=== PATIENT | male | born 1975 | race Caucasian/White ===

== ENCOUNTER 2017-08-27 10:24 | Emergency (ER) | payer MEDICAID ==
[~2017-08-27] VITALS: Ht 185.4 cm; Wt 70.0 kg
[~2017-08-27 10:24] MED LIST: KEP500T PO; LISI10TA4 PO
[2017-08-27] MEDS ORDERED: normal saline 1000ML IV soln IVB ONE (12:20)
[2017-08-27] MEDS ORDERED: thiamine 100mg tablet PO ONE (12:20)
[2017-08-27 12:40] LABS: BASOPHILS % (AUTO) 0.3 % (0-1); EOSINOPHILS # (AUTO) 0.1 X10'3 (0-0.9); EOSINOPHILS % (AUTO) 0.9 % (0-6); HEMATOCRIT 52.1 % (42.0-52.0); LYMPHOCYTES # (AUTO) 2.1 X10'3 (1.1-4.8); LYMPHOCYTES % (AUTO) 32.1 % (21-51); MEAN CORPUSCULAR HEMOGLOBIN 32.2 PG (27.0-31.0); MEAN CORPUSCULAR HGB CONC 34.8 % (33.0-36.5); MEAN CORPUSCULAR VOLUME 92.6 FL (78-98); MEAN PLATELET VOLUME 6.8 FL (7.4-10.4); MONOCYTES # (AUTO) 0.5 X10'3 (0-0.9); MONOCYTES % (AUTO) 6.9 % (2-12); NEUTROPHILS # (AUTO) 3.9 X10'3 (1.8-7.7); NEUTROPHILS % (AUTO) 59.8 % (42-75); PLATELET COUNT 230 X10'3 (140-440); RED BLOOD COUNT 5.63 X10'6 (4.70-6.10); RED CELL DISTRIBUTION WIDTH 13.6 % (11.5-14.5); WHITE BLOOD COUNT 6.5 X10'3 (4.5-11.0)
[2017-08-27 12:42] LABS: HEMOGLOBIN 18.1 g/dl (14.0-17.9)
[2017-08-27 12:50] LABS: INR 0.9 INR; PARTIAL THROMBOPLASTIN TIME 23 SECONDS (22-32); PROTHROMBIN TIME 9.4 SECONDS (9.0-12.0)
[2017-08-27 13:02] LABS: CLARITY,URINE CLEAR (Clear); COLOR,URINE YELLOW (Yellow); GLUCOSE, URINE NEGATIVE (Neg); KETONES,URINE NEGATIVE (Neg); LEUKOCYTE ESTERASE ,URINE NEGATIVE (Neg); NITRITES, URINE NEGATIVE (Neg); OCCULT BLOOD,URINE NEGATIVE (Neg); PROTEIN,URINE NEGATIVE (Neg); UROBILINOGEN,URINE 0.2 E.U/dL (0.2-1.0)
[2017-08-27 13:03] LABS: ALANINE AMINOTRANSFERASE 97 U/L (12-78); ALBUMIN 4.4 G/DL (3.4-5.0); ALBUMIN/GLOBULIN RATIO 1.2 (1.1-1.5); ALKALINE PHOSPHATASE 77 IU/L (46-116); ANION GAP 17 (8-16); ASPARTATE AMINO TRANSFERASE 93 U/L (10-37); BILIRUBIN,TOTAL 0.4 MG/DL (0.1-1.0); BLOOD UREA NITROGEN 12 MG/DL (7-18); BUN/CREATININE RATIO 15.2 (5.4-32.0); CALCIUM 9.5 MG/DL (8.5-10.1); CHLORIDE 107 MMOL/L (99-107); CREATININE 0.79 MG/DL (0.60-1.10); GLUCOSE 112 MG/DL (70-104); SODIUM 147 MMOL/L (135-145); TOTAL CARBON DIOXIDE 23.5 MMOL/L (24-32); TOTAL PROTEIN 8.2 G/DL (6.4-8.2); eGFR > 90 ML/MIN
[2017-08-27 13:08] LABS: UA COLLECTION TYPE CLN CATCH MIDSTREAM
[2017-08-27] MEDS ORDERED: LORazepam 2 mg/ml vial IV ONE (14:45)
[2017-08-27] MEDS ORDERED: LEVE250T4 PO (18:55)
[2017-08-27] MEDS ORDERED: LISI-600 PO (18:55)
[2017-08-27] MEDS ORDERED: CLON-527 PO (19:53)
[2017-08-27] MEDS ORDERED: GABA-530 PO (19:53)
[2017-08-27] MEDS ORDERED: ONDA8TAB9 PO (19:54)
[2017-08-27 19:57] VITALS: BP 113/74
== END 2017-08-27 19:59 | disposition home or self-care (01) ==
LOC: ER 10:24
DX: F10.10 Alcohol abuse, uncomplicated (principal); E86.0 Dehydration; I10 Essential (primary) hypertension; Z56.0 Unemployment, unspecified; Z88.5 Allergy status to narcotic agent
CPT/HCPCS: 36415; 71045; 80053; 81003; 85025; 85610; 85730; 93005; 96361; 96374; 99285; J2060; J7030

== ENCOUNTER 2018-11-08 19:36 | Emergency (ER) | payer MEDICAID ==
[~2018-11-08] VITALS: Ht 185.4 cm; Wt 205.0 kg
[~2018-11-08 19:36] MED LIST changes: +CLON-527 PO; +GABA-530 PO; +LEVE250T4 PO; +ONDA8TAB9 PO
[2018-11-08] MEDS ORDERED: ketorolac tromethamine 15mg/ml inj. IV ONE (20:10)
[2018-11-08] MEDS ORDERED: ondansetron/PF 4mg/2ml inj IV ONE ×2 (20:10→21:30)
[2018-11-08 20:40] LABS: BASOPHILS % (AUTO) 0.7 % (0-1); EOSINOPHILS # (AUTO) 0.1 X10'3 (0-0.9); EOSINOPHILS % (AUTO) 1.3 % (0-6); HEMOGLOBIN 16.7 g/dl (14.0-17.9); LYMPHOCYTES # (AUTO) 1.5 X10'3 (1.1-4.8); LYMPHOCYTES % (AUTO) 26.6 % (21-51); MEAN CORPUSCULAR HEMOGLOBIN 31.4 PG (27.0-31.0); MEAN CORPUSCULAR HGB CONC 34.7 g/dL (33.0-36.5); MEAN CORPUSCULAR VOLUME 90.4 FL (78-98); MEAN PLATELET VOLUME 6.6 FL (7.4-10.4); MONOCYTES # (AUTO) 0.4 X10'3 (0-0.9); MONOCYTES % (AUTO) 6.5 % (2-12); NEUTROPHILS # (AUTO) 3.8 X10'3 (1.8-7.7); NEUTROPHILS % (AUTO) 64.9 % (42-75); PLATELET COUNT 270 X10'3 (140-440); RED BLOOD COUNT 5.31 X10'6 (4.70-6.10); RED CELL DISTRIBUTION WIDTH 14.9 % (11.5-14.5); WHITE BLOOD COUNT 5.8 X10'3 (4.5-11.0)
[2018-11-08 20:41] LABS: CLARITY,URINE CLEAR (Clear); COLOR,URINE YELLOW (Yellow); GLUCOSE, URINE NEGATIVE (Neg); KETONES,URINE NEGATIVE (Neg); LEUKOCYTE ESTERASE ,URINE NEGATIVE (Neg); NITRITES, URINE NEGATIVE (Neg); OCCULT BLOOD,URINE NEGATIVE (Neg); PROTEIN,URINE NEGATIVE (Neg); UROBILINOGEN,URINE 0.2 E.U/dL (0.2-1.0)
[2018-11-08 20:43] LABS: UA COLLECTION TYPE URINAL
[2018-11-08 20:55] LABS: URINE AMPHETAMINE SCREEN NEGATIVE (Neg); URINE BARBITUATE SCREEN NEGATIVE (Neg); URINE BENZODIAZEPINES SCREEN NEGATIVE (Neg); URINE CANNABINOID SCREEN POSITIVE (Neg); URINE COCAINE SCREEN NEGATIVE (Neg); URINE METHADONE SCREEN NEGATIVE (Neg); URINE OPIATE SCREEN NEGATIVE (Neg); URINE PHENCYCLIDINE SCREEN NEGATIVE (Neg)
[2018-11-08 21:00] LABS: ALANINE AMINOTRANSFERASE 59 U/L (12-78); ALBUMIN 4.1 G/DL (3.4-5.0); ALBUMIN/GLOBULIN RATIO 1.1 (1.1-1.5); ALKALINE PHOSPHATASE 85 IU/L (46-116); ANION GAP 13 (8-16); ASPARTATE AMINO TRANSFERASE 30 U/L (10-37); BILIRUBIN,TOTAL 0.3 MG/DL (0.1-1.0); BLOOD UREA NITROGEN 13 MG/DL (7-18); BUN/CREATININE RATIO 14.3 (5.4-32.0); CALCIUM 8.4 MG/DL (8.5-10.1); CHLORIDE 107 MMOL/L (99-107); CREATININE 0.91 MG/DL (0.60-1.10); ETHANOL 0.206 GM/DL (0.0-0.010); GLUCOSE 107 MG/DL (70-104); LIPASE 206 U/L (73-393); POTASSIUM 4.1 MMOL/L (3.5-5.1); SODIUM 142 MMOL/L (135-145); TOTAL CARBON DIOXIDE 21.6 MMOL/L (24-32); TOTAL PROTEIN 7.9 G/DL (6.4-8.2); eGFR > 90 ML/MIN
[2018-11-08] MEDS ORDERED: phenobarbital inj 260 MG in normal saline 100ml IV soln 99 ML IV STA (21:29)
[2018-11-08] MEDS ORDERED: normal saline 1000ML IV soln IVB ONE (21:30)
[2018-11-08] MEDS ORDERED: famotidine/PF 10 mg/ml inj IV ONE (21:35)
[2018-11-08] MEDS ORDERED: pantoprazole 40 MG vial IV ONE (21:35)
[2018-11-08 21:47] LABS: MAGNESIUM 2.2 MG/DL (1.5-2.4)
[2018-11-08] MEDS ORDERED: ONDA4TAB6 PO (22:28)
[2018-11-08 23:47] VITALS: BP 147/97
== END 2018-11-08 23:53 ==
LOC: ER 19:36
DX: K29.20 Alcoholic gastritis without bleeding (principal); F10.239 Alcohol dependence with withdrawal, unspecified; F12.90 Cannabis use, unspecified, uncomplicated; R10.10 Upper abdominal pain, unspecified; I10 Essential (primary) hypertension; Z56.0 Unemployment, unspecified; Z90.49 Acquired absence of other specified parts of digestive tract; Z88.5 Allergy status to narcotic agent; Z79.899 Other long term (current) drug therapy; Z88.8 Allergy status to other drugs, medicaments and biological substances; Y90.9 Presence of alcohol in blood, level not specified
CPT/HCPCS: 36415; 71045; 80053; 80305; 80320; 81003; 82948; 83690; 83735; 85025; 93005; 96365; 96375; 99284; C9113; J2405; J2560; J3490; J7030

== ENCOUNTER 2019-09-24 06:24 | Emergency (ER) | payer MEDICAID, OTHER ==
[~2019-09-24] VITALS: Ht 185.4 cm; Wt 97.7 kg
[~2019-09-24 06:24] MED LIST changes: +ONDA4TAB6 PO
[2019-09-24] MEDS ORDERED: ketorolac trometh. 30mg/ml inj. IV ONE (07:30)
[2019-09-24] MEDS ORDERED: normal saline 1000ml 1,000 ML IV ONE (07:30)
[2019-09-24] MEDS ORDERED: diphenhydrAMINE 50 mg/ml inj IV ONE (07:30)
[2019-09-24 07:36] LABS: CLARITY,URINE CLEAR (Clear); COLOR,URINE YELLOW (Yellow); GLUCOSE, URINE NEGATIVE (Neg); KETONES,URINE NEGATIVE (Neg); LEUKOCYTE ESTERASE ,URINE NEGATIVE (Neg); NITRITES, URINE NEGATIVE (Neg); OCCULT BLOOD,URINE NEGATIVE (Neg); PROTEIN,URINE NEGATIVE (Neg); UROBILINOGEN,URINE 0.2 E.U/dL (0.2-1.0)
[2019-09-24 07:37] LABS: UA COLLECTION TYPE URINAL
[2019-09-24 07:39] LABS: BASOPHILS # (AUTO) 0.1 X10'3 (0-0.2); BASOPHILS % (AUTO) 0.7 % (0-1); EOSINOPHILS # (AUTO) 0.1 X10'3 (0-0.9); EOSINOPHILS % (AUTO) 0.8 % (0-6); HEMATOCRIT 46.4 % (42.0-52.0); HEMOGLOBIN 15.7 g/dl (14.0-17.9); LYMPHOCYTES # (AUTO) 0.7 X10'3 (1.1-4.8); LYMPHOCYTES % (AUTO) 8.4 % (21-51); MEAN CORPUSCULAR HEMOGLOBIN 30.8 PG (27.0-31.0); MEAN CORPUSCULAR HGB CONC 33.9 g/dL (33.0-36.5); MONOCYTES % (AUTO) 11.7 % (2-12); NEUTROPHILS # (AUTO) 6.7 X10'3 (1.8-7.7); NEUTROPHILS % (AUTO) 78.4 % (42-75); PLATELET COUNT 227 X10'3 (140-440); RED BLOOD COUNT 5.09 X10'6 (4.70-6.10); RED CELL DISTRIBUTION WIDTH 12.7 % (11.5-14.5); WHITE BLOOD COUNT 8.5 X10'3 (4.5-11.0)
[2019-09-24 07:48] LABS: PARTIAL THROMBOPLASTIN TIME 25 SECONDS (22-32)
[2019-09-24 07:50] LABS: ALANINE AMINOTRANSFERASE 36 U/L (12-78); ALBUMIN 3.9 G/DL (3.4-5.0); ALBUMIN/GLOBULIN RATIO 1.2 (1.1-1.5); ALKALINE PHOSPHATASE 87 IU/L (46-116); ANION GAP 9 (8-16); ASPARTATE AMINO TRANSFERASE 21 U/L (10-37); BILIRUBIN,TOTAL 0.3 MG/DL (0.1-1.0); BLOOD UREA NITROGEN 11 MG/DL (7-18); BUN/CREATININE RATIO 11.5 (5.4-32.0); CALCIUM 8.9 MG/DL (8.5-10.1); CHLORIDE 105 MMOL/L (99-107); CREATININE 0.96 MG/DL (0.60-1.10); GLUCOSE 104 MG/DL (70-104); SODIUM 139 MMOL/L (135-145); TOTAL CARBON DIOXIDE 25.5 MMOL/L (24-32); TOTAL PROTEIN 7.2 G/DL (6.4-8.2); eGFR 86 ML/MIN
[2019-09-24] MEDS ORDERED: IBUP-1984 PO (08:32)
[2019-09-24] MEDS ORDERED: LORA-660 PO (08:32)
[2019-09-24 08:38] VITALS: BP 145/95
== END 2019-09-24 08:38 ==
LOC: ER 06:25 → EEVIPCON 06:25 → ER 08:38
DX: R05 Cough (principal); Z20.828 Contact with and (suspected) exposure to other viral communicable diseases; R50.9 Fever, unspecified; I10 Essential (primary) hypertension; Z56.0 Unemployment, unspecified; Z90.49 Acquired absence of other specified parts of digestive tract; Z88.5 Allergy status to narcotic agent; Z88.8 Allergy status to other drugs, medicaments and biological substances; Z79.899 Other long term (current) drug therapy
CPT/HCPCS: 36415; 71045; 80053; 81003; 83605; 84145; 84484; 85025; 85610; 85730; 87040; 87502; 87503; 87635; 93005; 96374; 96375; 99285; J1200; J1885; J7030

== ENCOUNTER 2023-02-13 08:10 | Emergency (ER) | payer MEDICAID, OTHER ==
[~2023-02-13] VITALS: Ht 188 cm; Wt 82.0 kg
[~2023-02-13 08:10] MED LIST changes: +LISI10TA27 PO; -LISI10TA4 PO; +LORA-657 PO
[2023-02-13 08:47] VITALS: TEMP 97.9
--- NOTE | 2023-02-13 09:31 | NUR ---
Patient denied feeling suicidal when I asked him about this. Per patient, he punched the fence because he was mad at himself and also that his left him
[2023-02-13] MEDS ORDERED: CEPH-585 PO (10:17)
[2023-02-13] MEDS ORDERED: NAPR-56 PO (10:17)
[2023-02-13] MEDS ORDERED: ONDA4TAB12 PO (10:17)
[2023-02-13 10:27] VITALS: BP 136/90; PULSE 69; RESP 16; O2SAT 99
[2023-02-13 10:37] LABS: HIV ANTIBODY 1&2 RAPID NON-REACTIVE (Neg)
== END 2023-02-13 10:29 | disposition home or self-care (01) ==
LOC: ER 08:11
DX: S60.511A Abrasion of right hand, initial encounter (principal); R11.0 Nausea; R22.31 Localized swelling, mass and lump, right upper limb; I10 Essential (primary) hypertension; F41.9 Anxiety disorder, unspecified; Z72.89 Other problems related to lifestyle; Z56.0 Unemployment, unspecified; Z90.49 Acquired absence of other specified parts of digestive tract; Z88.8 Allergy status to other drugs, medicaments and biological substances; Z79.899 Other long term (current) drug therapy; W22.8XXA Striking against or struck by other objects, initial encounter; Y93.89 Activity, other specified; Y92.89 Other specified places as the place of occurrence of the external cause; Y99.8 Other external cause status
CPT/HCPCS: 36415; 86703; 99283

== ENCOUNTER 2023-04-10 18:40 | Emergency (ER) | payer SELFPAY ==
[~2023-04-10] VITALS: Ht 185.4 cm; Wt 84.1 kg
[~2023-04-10 18:40] MED LIST changes: +CEPH-585 PO; +ONDA4TAB12 PO
[2023-04-10 18:50] VITALS: BP 145/105; PULSE 125; RESP 18; TEMP 98; O2SAT 99
== END 2023-04-11 02:21 | disposition left against medical advice (07) ==
LOC: ER 18:41
DX: R51.9 Headache, unspecified (principal); Z53.21 Procedure and treatment not carried out due to patient leaving prior to being seen by health care provider
CPT/HCPCS: 99281

== ENCOUNTER 2023-08-19 11:06 | Emergency (ER) | payer MEDICAID ==
[~2023-08-19] VITALS: Ht 188 cm; Wt 84.8 kg
[2023-08-19 11:45] VITALS: BP 147/98; PULSE 90; RESP 17; TEMP 98.2; O2SAT 97
[2023-08-19 13:20] LABS: BASOPHILS % (AUTO) 0.3 % (0-1); EOSINOPHILS # (AUTO) 0.1 X10'3 (0-0.9); EOSINOPHILS % (AUTO) 1.2 % (0-6); HEMATOCRIT 38.9 % (42.0-52.0); HEMOGLOBIN 13.2 g/dl (14.0-17.9); LYMPHOCYTES # (AUTO) 1.5 X10'3 (1.1-4.8); LYMPHOCYTES % (AUTO) 14.9 % (21-51); MEAN CORPUSCULAR HGB CONC 33.8 g/dL (33.0-36.5); MEAN CORPUSCULAR VOLUME 88.8 FL (78-98); MEAN PLATELET VOLUME 7.2 FL (7.4-10.4); MONOCYTES # (AUTO) 1.2 X10'3 (0-0.9); MONOCYTES % (AUTO) 12.8 % (2-12); NEUTROPHILS # (AUTO) 6.9 X10'3 (1.8-7.7); NEUTROPHILS % (AUTO) 70.8 % (42-75); PLATELET COUNT 236 X10'3 (140-440); RED BLOOD COUNT 4.38 X10'6 (4.70-6.10); RED CELL DISTRIBUTION WIDTH 13.3 % (11.5-14.5); WHITE BLOOD COUNT 9.8 X10'3 (4.5-11.0)
[2023-08-19 14:03] LABS: ALBUMIN 4.1 G/DL (3.4-5.0); ANION GAP 11 (8-16); BLOOD UREA NITROGEN 22 MG/DL (7-18); BUN/CREATININE RATIO 27.5 (10.0-20.0); CHLORIDE 99 MMOL/L (99-107); GLUCOSE 128 MG/DL (70-104); MAGNESIUM 1.9 MG/DL (1.5-2.4); POTASSIUM 3.4 MMOL/L (3.5-5.1); PRO BRAIN NATRIURETIC PEPTIDE 254 PG/ML (0-125); SODIUM 137 MMOL/L (135-145); TOTAL CARBON DIOXIDE 27.2 MMOL/L (24-32); eCRCL 134 ML/MIN; eGFR > 90 ML/MIN
== END 2023-08-19 19:46 | disposition left against medical advice (07) ==
LOC: ER 11:07
DX: R42 Dizziness and giddiness (principal); R53.1 Weakness; Z53.21 Procedure and treatment not carried out due to patient leaving prior to being seen by health care provider
CPT/HCPCS: 36415; 71045; 80048; 83735; 83880; 84484; 85025; 93005; 99281

== ENCOUNTER 2023-08-27 10:48 | Emergency (ER) | payer MEDICAID ==
[~2023-08-27] VITALS: Ht 188 cm; Wt 80.8 kg
[2023-08-27 10:56] VITALS: TEMP 98.5
[2023-08-27] MEDS: LIDOcaine 1% 30ml preserv. free vial IJ ONE (11:27)
[2023-08-27 11:52] VITALS: BP 150/108; PULSE 78; RESP 18; O2SAT 99
[2023-08-27] MEDS ORDERED: CEPH-585 PO (12:02)
== END 2023-08-27 12:25 | disposition home or self-care (01) ==
LOC: ER 10:49
DX: S91.202A Unspecified open wound of left great toe with damage to nail, initial encounter (principal); L03.032 Cellulitis of left toe; I10 Essential (primary) hypertension; F41.9 Anxiety disorder, unspecified; F10.90 Alcohol use, unspecified, uncomplicated; Z56.0 Unemployment, unspecified; Z79.899 Other long term (current) drug therapy; Z88.5 Allergy status to narcotic agent; Z88.8 Allergy status to other drugs, medicaments and biological substances; Z98.890 Other specified postprocedural states; X58.XXXA Exposure to other specified factors, initial encounter; Y93.89 Activity, other specified; Y92.89 Other specified places as the place of occurrence of the external cause; Y99.8 Other external cause status
CPT/HCPCS: 11750; 99285; L3260; A6449

== ENCOUNTER 2024-05-25 16:55 | Emergency (ER) | payer MEDICAID ==
[~2024-05-25] VITALS: Ht 188 cm; Wt 90.9 kg
[~2024-05-25 16:55] MED LIST changes: -CEPH-585 PO; +ONDA-243 PO; -ONDA4TAB12 PO
[2024-05-25 17:50] LABS: BASOPHILS % (AUTO) 0.6 % (0-1); EOSINOPHILS % (AUTO) 0.8 % (0-6); HEMATOCRIT 41.5 % (42.0-52.0); HEMOGLOBIN 14.1 g/dl (14.0-17.9); LYMPHOCYTES % (AUTO) 22.1 % (21-51); MEAN CORPUSCULAR HEMOGLOBIN 30.2 PG (27.0-31.0); MEAN CORPUSCULAR VOLUME 88.7 FL (78-98); MEAN PLATELET VOLUME 6.6 FL (7.4-10.4); MONOCYTES # (AUTO) 0.5 X10'3 (0-0.9); MONOCYTES % (AUTO) 10.7 % (2-12); NEUTROPHILS % (AUTO) 65.8 % (42-75); PLATELET COUNT 354 X10'3 (140-440); RED BLOOD COUNT 4.68 X10'6 (4.70-6.10); RED CELL DISTRIBUTION WIDTH 12.7 % (11.5-14.5); WHITE BLOOD COUNT 4.6 X10'3 (4.5-11.0)
[2024-05-25 17:57] LABS: ALANINE AMINOTRANSFERASE 63 U/L (12-78); ALBUMIN 3.8 G/DL (3.4-5.0); ALKALINE PHOSPHATASE 118 IU/L (46-116); ANION GAP 12 (8-16); ASPARTATE AMINO TRANSFERASE 62 U/L (10-37); BILIRUBIN,TOTAL 0.8 MG/DL (0.1-1.0); BLOOD UREA NITROGEN 18 MG/DL (7-18); BUN/CREATININE RATIO 24.7 (10.0-20.0); CALCIUM 8.4 MG/DL (8.5-10.1); CHLORIDE 96 MMOL/L (99-107); CREATININE 0.73 MG/DL (0.60-1.10); ETHANOL < 10 MG/DL (<10); GLUCOSE 71 MG/DL (70-104); POTASSIUM 3.7 MMOL/L (3.5-5.1); SODIUM 133 MMOL/L (135-145); TOTAL CARBON DIOXIDE 25.3 MMOL/L (24-32); TOTAL PROTEIN 7.5 G/DL (6.4-8.2); eCRCL 145 ML/MIN; eGFR > 90 ML/MIN
[2024-05-25 18:00] LABS: URIC ACID 6.6 MG/DL (3.5-7.2)
[2024-05-25 18:07] VITALS: BP 128/64; PULSE 96; RESP 15; TEMP 98.7; O2SAT 98
== END 2024-05-25 18:08 | disposition home or self-care (01) ==
LOC: ER 16:56
DX: R20.0 Anesthesia of skin (principal); I10 Essential (primary) hypertension; F41.9 Anxiety disorder, unspecified; Z88.5 Allergy status to narcotic agent; Z79.899 Other long term (current) drug therapy; Z90.49 Acquired absence of other specified parts of digestive tract; Z98.890 Other specified postprocedural states
CPT/HCPCS: 36415; 80053; 80320; 84550; 85025; 93005; 99284

== ENCOUNTER 2024-08-05 17:45 | Emergency (ER) | payer MEDICAID ==
[~2024-08-05] VITALS: Ht 185.4 cm; Wt 76.0 kg
[2024-08-05] MEDS ORDERED: DOXY100C43 PO (18:52)
[2024-08-05] MEDS ORDERED: IBUP-1984 PO (18:52)
[2024-08-05] MEDS: DOXYCYCLINE 100MG CAPSULE PO STA (19:19)
[2024-08-05 19:32] VITALS: BP 149/72; PULSE 99; RESP 17; TEMP 98; O2SAT 98
== END 2024-08-05 19:34 | disposition home or self-care (01) ==
LOC: ER 17:46
DX: L03.116 Cellulitis of left lower limb (principal); I10 Essential (primary) hypertension; Z88.5 Allergy status to narcotic agent; Z88.8 Allergy status to other drugs, medicaments and biological substances; Z79.899 Other long term (current) drug therapy; Z90.49 Acquired absence of other specified parts of digestive tract
CPT/HCPCS: 73590; 99283

== ENCOUNTER 2024-11-09 20:33 | Emergency (ER) | payer MEDICAID ==
[~2024-11-09] VITALS: Ht 185.4 cm; Wt 74.2 kg
[2024-11-09 20:42] VITALS: BP 107/60; PULSE 107; RESP 15; TEMP 99.6; O2SAT 96
--- NOTE | 2024-11-09 22:08 | Physician Documentation ---
History of Present Illness ~ Chief Complaint: See Chief Complaint Stated Complaint: INFECTION, MED REQ Time Seen by MD: 21:40 Primary Medical Doctor: none Source: patient Mode of Arrival: POV Exam Limitations: no limitations HPI 49-year-old male with wound to finger and knee he was evaluated and treated at the [facility] received antibiotics but has been detoxing and has misplaced his antibiotics. Patient has history of cellulitis and MRSA concern for wound infection requesting evaluation and antibiotics. Treated In: clinic Tetanus within 5 years?: Yes Pain Severity: mild Discharge: purulent Associated Symptoms: denies symptoms Medication Reconciliation Allergies: Coded Allergies: codeine (Verified Allergy, Unknown, 05/25/24) promethazine HCl (Verified Allergy, Unknown, 05/25/24) Scheduled Clonazepam* (Klonopin*), 1 MG PO BID Gabapentin (Gabapentin), 1 CAP PO Q8H Levetiracetam (Keppra), 1 TAB PO Q12H Levetiracetam (Keppra), 1 TAB PO Q12H Lisinopril (Lisinopril), 1 TAB PO DAILY Loratadine (Loratadine), 1 TAB PO DAILY Scheduled PRN ONDANSETRON ODT 4mg tablet (Ondansetron Odt), 1 TABLET PO Q6H PRN for nausea /vomiting Ondansetron (Zofran Odt), 4 MG PO QID PRN for nausea Ondansetron Hcl (Zofran), 1 TAB PO Q6H PRN for nausea/vomiting Past Medical History Past Medical History: Seizures, Hypertension, Anxiety Past Surgical History: appendectomy Alcohol Use: Heavy Drug Use: other Lives with: Family Lives In: Home Occupation: unemployed Review of Systems All Other Systems at this time: Reviewed and Negative Integumentary: Reports: see HPI Physical Exam Vital Signs: Temperature: 99.6, Source: Oral, Heart Rate: 107, Respiratory Rate: 15, BP: 107/60, Pulse Oximetry: 96, Weight: 74.200 Oxygen Flow Rate: 0 General Appearance: alert, WD/WN, no apparent distress Cardiovascular: normal peripheral pulses, regular rate, rhythm, no edema Respiratory: lungs clear, normal breath sounds, no respiratory distress Wound Site #1: Location: Right 2nd finger Discharge: purulent Erythema: localized to wound edges Wound Site #2: Location: Left knee Appearance: tender Discharge: none Erythema: surrounding tissue Comment Small scabbed area to the medial aspect of the right knee surrounding erythema without induration or fluctuance some warmth extending approximately 4 cm some scabbed lesion. Skin Small abrasion to right 2nd PIP small area of fluctuance straightening purulent drainage minimal surrounding erythema minimal swelling Progress Results/Orders Results/Orders Orders - ANGLE CUELLO NP Wound Care Orders (11/09/24 22:01) Bacitracin (11/09/24 22:05) Sulfamethox/Trimetho. Ds Tab (Septra Ds (11/09/24 22:05) Vital Signs 11/09/24 20:42 Temp 99.6 Pulse 107 Resp 15 B/P (MAP) 107/60 Pulse Ox 96 O2 Flow Rate 0 Medical Decision Making Differential Dx:Considerations: Include: Abscess, Cellulitis, Dressing change, Healing wound Departure Disposition: 01 HOME / SELF CARE / HOMELESS Impression: Primary Impression: Wound cellulitis Condition: Stable Discharge Instructions: Cellulitis, Adult, [id number], How to Change Your Wound Dressing, [id number] Additional Instructions: Take antibiotics as prescribed. If you find the antibiotics from the [facility] either take those antibiotics or the antibiotics received tonight do not take both. Keep wounds clean and dry. Monitor closely for any new or worsening symptoms. Referrals: NO PRIMARY CARE PROVIDER (PCP) Prescriptions Sulfamethoxazole/Trimethoprim (Bactrim Ds Tablet) 800 Mg-160 Mg Tablet 1 TAB PO Q12H for 7 Days, #14 TAB Prov: ANGLE CUELLO NP 11/09/24 Education Educated: Patient Educated regarding: diagnosis, treatment, need for follow up Signature Scribe Signature: No scribe Attestation: The note accurately reflects work and decisions made by me.Angle Cuello - [employer] 11/09/24 22:12 ANGLE CUELLO NP November 09, 2024 22:08
[2024-11-09] MEDS: bacitracin 15gm ointment TP ONE (22:09)
[2024-11-09] MEDS: sulfamethoxazole/trimethoprim DS (800/160mg) tablet PO ONE (22:09)
[2024-11-09] MEDS ORDERED: SULF1TAB49 PO (22:12)
== END 2024-11-09 22:21 | disposition home or self-care (01) ==
LOC: ER 20:34
DX: L03.011 Cellulitis of right finger (principal); I10 Essential (primary) hypertension; F41.9 Anxiety disorder, unspecified; Z90.49 Acquired absence of other specified parts of digestive tract; Z88.8 Allergy status to other drugs, medicaments and biological substances; Z88.5 Allergy status to narcotic agent; Z79.899 Other long term (current) drug therapy; Z56.0 Unemployment, unspecified
CPT/HCPCS: 99283